=== PATIENT | female | born 1945 | race Two or more races ===

== ENCOUNTER 2023-04-07 07:00 | Inpatient (IN) | payer OTHER ==
[~2023-04-07] VITALS: Ht 167.6 cm; Wt 88.9 kg
[2023-04-07 08:52] LABS: HEMATOCRIT 37.9 % (36.0-45.00); HEMOGLOBIN 12.7 g/dL (12.0-15.00); MEAN CELL VOLUME 84.1 fL (80.00-100.00); MEAN CORPUSCULAR HEMOGLOBIN 28.1 pg (27.00-32.0); MEAN CORPUSCULAR HGB CONC 33.4 g/dl (32.0-36.0); PLATELET COUNT 276 K/uL (150-450); RED BLOOD COUNT 4.51 M/uL (4.00-6.00); RED CELL DISTRIBUTION WIDTH 14.5 % (11.5-14.5)
[2023-04-07 09:11] LABS: INR 1.04; PARTIAL THROMBOPLASTIN TIME 27.5 SECONDS (22.0-34.0); PROTHROMBIN TIME 10.9 SECONDS (9.0-11.5)
[2023-04-07 09:19] LABS: ALBUMIN 3.3 gm/dL (3.4-5.0); BILIRUBIN TOTAL 0.53 mg/dL (0.3-1.2); CREATININE SERUM 0.9 mg/dL (0.55-1.02); GFR 61.04; GLOBULINA 4.4 G/DL (2.4-3.5); POTASSIUM 4.15 mEq/L (3.5-5.1); TOTAL PROTEIN 7.7 gm/dL (6.4-8.2)
[2023-04-07 09:40] LABS: URINE APPEARANCE Clear; URINE BILIRRUBIN Negative (NEGATIVE); URINE BLOOD Negative; URINE COLOR Yellow; URINE GLUCOSE Negative (NEGATIVE); URINE LEUKOCYTE Trace; URINE NITRATE Negative; URINE PROTEIN Negative (NEGATIVE)
[2023-04-07 09:46] LABS: URINE BACTERIA 1550.9 uL (0.0-1933); URINE EPITHELIAL CELLS 93.9 uL (0.0-38.8); URINE RBC 5.4 uL (0.0-20.8); URINE WBC 38.4 uL (0.0-23.2)
[2023-04-14 06:47] LABS: HEMATOCRIT 30.5 % (36.0-45.00); HEMOGLOBIN 10.2 g/dL (12.0-15.00); MEAN CELL VOLUME 84.3 fL (80.00-100.00); MEAN CORPUSCULAR HEMOGLOBIN 28.1 pg (27.00-32.0); MEAN CORPUSCULAR HGB CONC 33.4 g/dl (32.0-36.0); PLATELET COUNT 222 K/uL (150-450); RED BLOOD COUNT 3.62 M/uL (4.00-6.00); RED CELL DISTRIBUTION WIDTH 14.3 % (11.5-14.5)
[2023-04-15 06:36] LABS: HEMATOCRIT 28.2 % (36.0-45.00); HEMOGLOBIN 9.5 g/dL (12.0-15.00); MEAN CORPUSCULAR HEMOGLOBIN 28.6 pg (27.00-32.0); MEAN CORPUSCULAR HGB CONC 33.6 g/dl (32.0-36.0); PLATELET COUNT 186 K/uL (150-450); RED BLOOD COUNT 3.32 M/uL (4.00-6.00); RED CELL DISTRIBUTION WIDTH 14.2 % (11.5-14.5)
[2023-04-16] MEDS ORDERED: ELIQUIS2.5 MG PO (07:06)
[2023-04-16] MEDS ORDERED: CEFADROXIL500 MG PO (07:06)
[2023-04-16] MEDS ORDERED: PERCOCET 5-3251 EACH PO (07:06)
== END 2023-04-16 13:24 | disposition designated cancer center or children's hospital (05) | DRG 470 ==
LOC: O/R 04-13 06:27 → SURH 04-13 06:27 → SURG 04-13 07:00 → SURH 04-13 11:32
PROVIDERS: ADMIT Orthopaedic Surgery; ATTEND Orthopaedic Surgery
PROC: 3E0F7SF Introduction of Other Gas into Respiratory Tract, Via Natural or Artificial Opening (ICD-10-PCS; 2023-04-13)
PROC: 0SR90JA Replacement of Right Hip Joint with Synthetic Substitute, Uncemented, Open Approach (ICD-10-PCS; principal; 2023-04-13 07:00)
DX: M16.11 Unilateral primary osteoarthritis, right hip (principal); M89.751 Major osseous defect, right pelvic region and thigh; M70.61 Trochanteric bursitis, right hip; M81.8 Other osteoporosis without current pathological fracture; M06.851 Other specified rheumatoid arthritis, right hip; I10 Essential (primary) hypertension; M32.8 Other forms of systemic lupus erythematosus; Z74.09 Other reduced mobility